=== PATIENT | male | born 1990 | race Two or more races ===

== ENCOUNTER 2019-02-23 08:15 | Emergency (ER) | payer OTHER ==
[~2019-02-23] VITALS: Ht 180.3 cm; Wt 99.8 kg
[2019-02-23 09:12] VITALS: BP 144/99
[2019-02-23] MEDS ORDERED: FLUORESCEIN SODIUM OPHTH 1 EA STRIP ONE (09:17)
== END 2019-02-23 10:19 | disposition home or self-care (01) ==
LOC: ER 08:15
DX: S05.02XA Injury of conjunctiva and corneal abrasion without foreign body, left eye, initial encounter (principal); X58.XXXA Exposure to other specified factors, initial encounter; Y93.89 Activity, other specified; Y92.89 Other specified places as the place of occurrence of the external cause; Y99.8 Other external cause status